=== PATIENT | male | born 1955 | race Caucasian/White ===

== ENCOUNTER 2020-04-02 00:16 | Outpatient (CLI) | payer OTHER, SELFPAY ==
[2020-04-02 19:45] LABS: SARS-CoV-2 RNA PCR Negative
== END 2020-04-02 00:17 | disposition home or self-care (01) ==
LOC: ANHCOVIDDT 00:16
PROVIDERS: PCP Internal Medicine; Visit Provider Internal Medicine Gastroenterology
DX: Z01.818 Encounter for other preprocedural examination (principal); Z11.59 Encounter for screening for other viral diseases
CPT/HCPCS: 87635; C9803; U0003

== ENCOUNTER 2020-04-04 03:43 | Day surgery (SDC) | payer OTHER, SELFPAY ==
[2020-04-01 10:40] VITALS: BMI 35.4
[2020-04-04 06:27] VITALS: BP 130/107; PULSE 75; RESP 18; TEMP 36.7; O2SAT 99
[2020-04-04 06:33] VITALS: BMI 34.4
[2020-04-04] MEDS: LACTATED RINGERS 1,000 ML 150 ML IV CONT (06:42)
--- NOTE | 2020-04-04 06:54 | P.HP_ITS ---
History of Present Illness History of Present Illness Consent: Risks, benefits, and alternatives have been discussed and questions answered. Patient agrees to proceed with procedure. Chief complaint: Neoplasm Screening Narrative: Eric Jones is a 64 year old W male Referred for screening colonoscopy. Last colonoscopy was 5 years ago small polyp was removed which turned not be lymphoid aggregate. Patient is asymptomatic and there is no known family history of colon polyps or colon cancer [facility] Past Medical History Medical History (Updated 04/04/20 @ 06:56 by Dany Jimenez MD) Fracture of right lower leg Hypertension Surgical History Surgical History (Updated 04/04/20 @ 06:56 by Dany Jimenez MD) History of prostate biopsy S/P left inguinal herniorrhaphy Status post hemorrhoidectomy Meds Home Medications and Allergies Home Medications Medication Instructions Recorded Confirmed Type Men's 50 Plus Multivitamin 1 tab-cap PO DAILY 04/01/20 04/04/20 History benazepril 10 mg PO DAILY 04/01/20 04/04/20 History nebivolol [Bystolic] 5 mg PO DAILY 04/01/20 04/04/20 History tramadol 50 mg PO BID PRN 04/01/20 04/04/20 History Allergies Allergy/AdvReac Type Severity Reaction Status Date / Time No Known Allergies Allergy Verified 04/04/20 06:32 Vital Signs Vital Signs - 24 hr 04/04/20 06:27 Temperature 36.7 C Pulse Rate 75 Respiratory Rate 18 Blood Pressure 130/107 H Pulse Oximetry 99 Exam Const: Orientation/consciousness: patient oriented x3 Resp: Auscultation: clear to auscultation bilaterally Cardio: Rate: regular rate Rhythm: regular rhythm Heart sounds: no murmurs GI: GI Palp: Yes Soft to palpation, No Tenderness to palpation present (GI), Yes No hepatosplenomegaly present and No Palpable mass present Auscultation: normal bowel sounds Neuro: General: patient oriented x3 and no focal motor deficits Extrem: General: no pedal edema Assessment and Plan Additional Plan screening colonoscopy secondary history of colonic polyps
--- NOTE | 2020-04-04 06:55 | WPDANESEPPF ---
Anes - Initial Pre Proc Eval Procedure: Operation Date: 04/04/20 07:30 Proposed Procedures p Screening Colonoscopy - Dany Jimenez MD Date/Time: 04/04/20 06:55 Surgeon: Dany Jimenez MD Pre Op Diagnosis: Neoplasm Screening Patient Data Age: 64 Gender: M Height: 1.8 m Weight: 112 kg Last Vital Signs Temp 36.7 C 04/04/20 06:27 Pulse 75 04/04/20 06:27 Resp 18 04/04/20 06:27 BP 130/107 H 04/04/20 06:27 Pulse Ox 99 04/04/20 06:27 Allergies Allergy/AdvReac Type Severity Reaction Status Date / Time No Known Allergies Allergy Verified 04/04/20 06:32 Home Medications Medication Instructions Recorded Confirmed Type Men's 50 Plus Multivitamin 1 tab-cap PO DAILY 04/01/20 04/04/20 History benazepril 10 mg PO DAILY 04/01/20 04/04/20 History nebivolol [Bystolic] 5 mg PO DAILY 04/01/20 04/04/20 History tramadol 50 mg PO BID PRN 04/01/20 04/04/20 History Patient hx anesthesia problems: none Family hx anesthesia problems: none PMFSH Past Medical History Medical History Fracture of right lower leg Hypertension Surgical History Surgical History History of prostate biopsy S/P left inguinal herniorrhaphy Status post hemorrhoidectomy Anes - Eval Final PreProcedure Day of Procedure 04/04/20 06:55 Patient weight: obese Heart: regular rate and rhythm Lungs: clear to auscultation and normal air movement Airway: Mallampati scale class II Neurological: alert and oriented Last oral intake: >/= 8 hours ASA classification: II Emergent: no Anesthetic plan: proceed Anesthesia type and monitoring: general GIVS Informed Consent: The patient's anesthetic plan and its attendant risks and benefits were discussed with the patient/family/POA. Questions were solicited and answers provided to the satisfaction of the patient/family/POA.
[2020-04-04] MEDS: SIMETHICONE ORAL SUSPENSION 20 MG/0.3 ML 30 ML BOTTLE 0.6 ML IRRIGATION (07:44)
[2020-04-04 07:59] VITALS: BP 140/81; PULSE 83; RESP 20; O2SAT 99
[2020-04-04 08:09] VITALS: BP 158/95; PULSE 72; RESP 20; O2SAT 100
[2020-04-04 08:19] VITALS: BP 162/97; PULSE 80; RESP 18; O2SAT 100
== END 2020-04-04 08:33 | disposition home or self-care (01) ==
PROVIDERS: PCP Internal Medicine; Visit Provider Internal Medicine Gastroenterology
PROC: 0DJD8ZZ Inspection of Lower Intestinal Tract, Via Natural or Artificial Opening Endoscopic (ICD-10-PCS; CPT 45378; principal; 2020-04-04 07:30)
DX: Z12.11 Encounter for screening for malignant neoplasm of colon (principal); D12.0 Benign neoplasm of cecum; D12.8 Benign neoplasm of rectum; K63.5 Polyp of colon; K57.30 Diverticulosis of large intestine without perforation or abscess without bleeding; K64.4 Residual hemorrhoidal skin tags; I10 Essential (primary) hypertension; E66.9 Obesity, unspecified; Z68.34 Body mass index [BMI] 34.0-34.9, adult
CPT/HCPCS: 45380; 45385; 88305; J2704; J7120

== ENCOUNTER 2021-02-14 14:28 | Outpatient (CLI) | payer MEDICARE, SELFPAY ==
--- NOTE | 2021-02-14 | ECHO_ITS ---
Patient Info Name: Eric Jones Age: 65 years : 1955 Gender: Male Ht: 70 in Wt: 250 lbs BSA: 2.41 m2 HR: 54 bpm BP: 163 / 84 mmHg Technical Quality: Good Exam Date: 02/14/2021 3:04 PM Exam Location: [facility] Patient Status: Outpatient Admit Date: 02/14/2021 Staff Ordering Physician: MattyNate MD Food Sales Clerk: Eileen Matias RDCS Attending Provider: TobiNate MD Exam Type: CA echo doppler color flow Study Info Indications - ABN EKG PRE OP Complete two-dimensional, color flow and Doppler transthoracic echocardiogram is performed. Summary 1. Complete two-dimensional, color flow and Doppler transthoracic echocardiogram is performed. 2. Left ventricular chamber dimension is normal. 3. Ventricular septum is sigmoid shaped. No LVOT obstruction. 4. Left ventricular systolic function is normal, estimated at 65-70%. 5. The left ventricular diastolic function is grade I diastolic dysfunction. 6. E/e' 8 is minimally elevated. 7. Left atrial chamber dimension is mildly enlarged. 8. There is trace mitral valve regurgitation. 9. There is trace tricuspid valve regurgitation. 10. No pulmonary hypertension, estimated pulmonary arterial systolic pressure is 38 mmHg. Left Ventricle Ventricular septum is sigmoid shaped. No LVOT obstruction. E/e' 8 is minimally elevated. Left ventricular chamber dimension is normal. Left ventricular systolic function is normal, estimated at 65-70%. The left ventricular diastolic function is grade I diastolic dysfunction. Right Ventricle Right ventricular chamber dimension is normal. Right ventricular systolic function is normal. Left Atria Left atrial chamber dimension is mildly enlarged. Right Atria Right atrial chamber dimension is normal. Aortic Valve The aortic valve is trileaflet. There is no aortic valve stenosis. There is no aortic valve regurgitation. Pulmonic Valve There is no pulmonic regurgitation. Mitral Valve There is no mitral valve stenosis. There is trace mitral valve regurgitation. Tricuspid Valve There is trace tricuspid valve regurgitation. No pulmonary hypertension, estimated pulmonary arterial systolic pressure is 38 mmHg. Pericardium/Pleural There is no pericardial effusion. Inferior Vena Cava Normal inferior vena cava with >50% collapse upon inspiration consistent with normal right atrial pressure, 5 mmHg. Aorta The aortic root size at the sinus of Valsalva is normal. Left Ventricular Outflow Tract Name Value Normal LVOT 2D LVOT Diameter 2.2 cm LVOT Doppler LVOT Peak Gradient 5 mmHg LVOT Mean Gradient 3 mmHg LVOT VTI 26 cm LVOT VTI/AV VTI Ratio 0.7 LVOT Stroke Volume 103 ml LVOT CO 20.6 l/min LVOT CI 8.5 l/min/m2 Pulmonic Valve Name Value Normal
== END 2021-02-14 14:29 | disposition home or self-care (01) ==
LOC: ANHCARD 14:30
PROVIDERS: PCP Internal Medicine; Visit Provider Internal Medicine
DX: R94.31 Abnormal electrocardiogram [ECG] [EKG] (principal)
CPT/HCPCS: 93306